=== PATIENT | male | born 1940 | race Caucasian/White ===

== ENCOUNTER 2022-10-24 11:46 | Outpatient (CLI) | payer MEDICARE | END 2022-10-24 23:59 | disposition EMS.NT | LOC: EMS 11:46 | DX: R07.89 Other chest pain (principal) ==

== ENCOUNTER 2022-10-24 13:25 | Emergency (ER) | payer MEDICARE ==
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
[2022-10-24 14:10] LABS: BASOPHILS % (AUTO) 0.3 %; HCT - HEMATOCRIT 41.2 % (42.0-52.0); LYMPHOCYTES % (AUTO) 15.1 %; MEAN CORPUSCULAR HEMOGLOBIN 31.1 pg (27.0-31.0); MEAN CORPUSCULAR VOLUME 91.6 fL (80.0-94.0); MEAN PLATELET VOLUME 9.3 fL (7.4-11.4); MONOCYTES # (AUTO) 0.4 10^3/uL (0.0-1.0); MONOCYTES % (AUTO) 5.6 %; NEUTROPHILS # (AUTO) 5.4 10^3/uL (1.5-6.6); NEUTROPHILS % (AUTO) 78.7 %; PLT - PLATELET COUNT 217 10^3/uL (130-450); RED CELL DISTRIBUTION WIDTH 13.2 % (12.0-15.0); WHITE BLOOD COUNT 6.8 x10^3/uL (4.8-10.8)
[2022-10-24 14:21] LABS: ALBUMIN/GLOBULIN RATIO 1.2 (1.0-2.2); BILIRUBIN,TOTAL 1.4 mg/dL (0.2-1.0); CALCIUM 9.1 mg/dL (8.5-10.3); CREATININE 0.8 mg/dL (0.6-1.2); POTASSIUM 3.8 mmol/L (3.5-5.0); TOTAL PROTEIN 7.3 g/dL (6.7-8.2)
[2022-10-24] MEDS ORDERED: iohexoL-300 100 ML VIAL ONE (14:50)
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
[2022-10-24 16:53] VITALS: BP 167/98
[2022-10-24] MEDS ORDERED: HYDROcod/ACETAM 5/325 MG TABLET PO STA (16:58)
[2022-10-24] MEDS ORDERED: iohexoL-300 100 ML VIAL IVP ONE (17:14)
== END 2022-10-24 17:06 | disposition home or self-care (01) ==
LOC: ED 13:25
DX: S20.212A Contusion of left front wall of thorax, initial encounter (principal); S30.1XXA Contusion of abdominal wall, initial encounter; V43.52XA Car driver injured in collision with other type car in traffic accident, initial encounter; Y92.410 Unspecified street and highway as the place of occurrence of the external cause
CPT/HCPCS: 36415; 71260; 74177; 80053; 85025; 99284; A9270; Q9967